=== PATIENT | male | born 1955 | race Caucasian/White ===

== ENCOUNTER → 2018-07-26 | Outpatient (CLI) | payer BC | LOC: RAD 13:30 → EDBD 13:30 | DX: J43.9 Emphysema, unspecified (principal); M79.89 Other specified soft tissue disorders; R59.9 Enlarged lymph nodes, unspecified | CPT/HCPCS: Q9967 ==

== ENCOUNTER → 2018-08-14 | Outpatient (CLI) | payer BC | LOC: RAD 07:32 | DX: C34.12 Malignant neoplasm of upper lobe, left bronchus or lung (principal) | CPT/HCPCS: A9585 ==

== ENCOUNTER → 2018-09-02 | Outpatient (CLI) | payer BC ==
[2018-09-02 08:37] LABS: BASO # 0.1 (0.02-0.10); EOS # 0.2 (0.04-0.40); HEMATOCRIT 38.5 % (42.0-52.0); HEMOGLOBIN 11.8 g/dL (13.5-18.0); LYMPH# 1.2 (1.50-4.00); MEAN CELL VOLUME 102 fl (78-100); MEAN CORPUSCULAR HEMOGLOBIN 31 pg (27-31); MEAN CORPUSCULAR HGB CONC 31 g/dL (33-37); MEAN PLATELET VOLUME 8.5 fl (7.4-10.4); MONO # 0.8 (0.20-0.80); NEU # 6.8 (1.40-6.50); PLATELET COUNT 332 K/mm3 (130-400); RED BLOOD COUNT 3.79 M/mm3 (4.20-5.60); RED CELL DISTRIBUTION WIDTH 13.3 % (11.5-14.5); WHITE BLOOD COUNT 9.1 K/mm3 (4.8-10.8)
[2018-09-02 08:58] LABS: ALBUMIN 3.1 g/dL (3.4-4.8); CALCIUM 9.5 mg/dL (8.8-10.0); POTASSIUM 4.4 mmol/L (3.5-5.1); TOTAL BILIRUBIN 0.2 mg/dL (0.2-1.2); TOTAL PROTEIN 6.8 g/dL (6.2-8.1)
== END ==
LOC: LAB 08:18
PROVIDERS: Internal Medicine
DX: C34.12 Malignant neoplasm of upper lobe, left bronchus or lung (principal)

== ENCOUNTER 2020-01-26 11:35 | Emergency (ER) | payer BC ==
[2020-01-26] MEDS ORDERED: OXYCODONE HCL10 M1 PO (12:01)
[2020-01-26] MEDS ORDERED: DURAGESIC50 MCG/PAT TD (12:01)
[2020-01-26 12:15] LABS: HEMATOCRIT 44.2 % (42.0-52.0); HEMOGLOBIN 14.5 g/dL (13.5-18.0); MEAN CELL VOLUME 96 fl (78-100); MEAN CORPUSCULAR HEMOGLOBIN 31 pg (27-31); MEAN CORPUSCULAR HGB CONC 33 g/dL (33-37); MEAN PLATELET VOLUME 9.7 fl (7.4-10.4); PLATELET COUNT 432 K/mm3 (130-400); RED BLOOD COUNT 4.62 M/mm3 (4.20-5.60); RED CELL DISTRIBUTION WIDTH 14.9 % (11.5-14.5); WHITE BLOOD COUNT 10.8 K/mm3 (4.8-10.8)
[2020-01-26 12:30] LABS: BAND 8 % (0-10); LYMPHOCYTE 7 % (20-51); MONOCYTE 7 % (3-10); NEUTROPHILS 74 % (42-75)
[2020-01-26 12:47] LABS: ALBUMIN 2.9 g/dL (3.4-4.8)
[2020-01-26 12:48] LABS: POTASSIUM 3.9 mmol/L (3.5-5.1); SODIUM 130 mmol/L (136-145)
[2020-01-26 12:49] LABS: CALCIUM 8.8 mg/dL (8.3-10.5)
[2020-01-26 12:50] LABS: GLUCOSE 66 mg/dL (75-110); TOTAL PROTEIN 6.3 g/dL (6.2-8.1)
[2020-01-26 12:51] LABS: CARBON DIOXIDE 18 mmol/L (23-31)
[2020-01-26 12:52] LABS: TOTAL BILIRUBIN 0.6 mg/dL (0.2-1.2)
[2020-01-26 12:55] LABS: AST-SGOT 28 U/L (5-34)
[2020-01-26 12:56] LABS: ALT/SGPT 14 U/L (0-55); PARTIAL THROMBOPLASTIN TIME 28.2 SECONDS (21.0-32.0); PROTHROMBIN TIME 12.2 SECONDS (9.0-12.0)
[2020-01-26 13:03] LABS: TROPONIN-I < 0.03 ng/mL (<0.030)
[2020-01-26 13:31] LABS: D-DIMER 4.41 mg/L FEU (0.15-0.50)
[2020-01-26 17:29] VITALS: BP 107/65
== END 2020-01-26 16:40 | disposition short-term general hospital (02) ==
LOC: ED 11:35
PROVIDERS: Nurse Practitioner
DX: J69.0 Pneumonitis due to inhalation of food and vomit (principal); R09.02 Hypoxemia; E87.1 Hypo-osmolality and hyponatremia; Z20.828 Contact with and (suspected) exposure to other viral communicable diseases; Z87.891 Personal history of nicotine dependence
CPT/HCPCS: J0696; J2405; J2930; J3490; J7030; Q9967

== ENCOUNTER 2021-07-31 20:15 | Emergency (ER) | payer SELFPAY ==
[~2021-07-31] VITALS: Ht 182.9 cm; Wt 77.3 kg
[~2021-07-31 20:15] MED LIST: DURAGESIC50 MCG/PAT TD; OXYCODONE HCL10 M1 PO
[2021-07-31 20:44] LABS: HEMATOCRIT 42.4 % (42.0-52.0); HEMOGLOBIN 12.5 g/dL (13.5-18.0); MEAN CELL VOLUME 115 fl (78-100); MEAN CORPUSCULAR HEMOGLOBIN 34 pg (27-31); MEAN CORPUSCULAR HGB CONC 30 g/dL (33-37); MEAN PLATELET VOLUME 10.7 fl (7.4-10.4); PLATELET COUNT 148 K/mm3 (130-400); RED BLOOD COUNT 3.68 M/mm3 (4.20-5.60); RED CELL DISTRIBUTION WIDTH 13.1 % (11.5-14.5); WHITE BLOOD COUNT 17.1 K/mm3 (4.8-10.8)
[2021-07-31 20:53] LABS: ALBUMIN 3.1 g/dL (3.4-4.8); CALCIUM 9.1 mg/dL (8.3-10.5); TOTAL PROTEIN 5.8 g/dL (6.2-8.1)
[2021-07-31 20:54] LABS: POTASSIUM 6.3 mmol/L (3.5-5.1)
[2021-07-31 21:01] LABS: BAND 47 % (0-10); NEUTROPHILS 10 % (42-75)
[2021-07-31 21:02] LABS: LYMPHOCYTE 42 % (20-51); MONOCYTE 1 % (3-10); POLYCHROMASIA 1+
== END 2021-07-31 23:48 | disposition expired ==
LOC: ED 20:15
PROVIDERS: Family Medicine
DX: Z85.118 Personal history of other malignant neoplasm of bronchus and lung